=== PATIENT | male | born 1975 | race Caucasian/White ===

== ENCOUNTER 2021-03-13 11:11 | Emergency (ER) | payer OTHER ==
[~2021-03-13] VITALS: Ht 185.4 cm; Wt 91.6 kg
[~2021-03-13 11:11] MED LIST: NO MEDS
[2021-03-13 11:18] VITALS: BP 128/75
[2021-03-13] MEDS ORDERED: AZIT250T PO (12:19)
--- NOTE | 2021-03-13 12:25 | NUR ---
Patient discharged to home in stable condition. Written and verbal after care instructions given. Patient verbalizes understanding of instruction.
== END 2021-03-13 12:24 | disposition home or self-care (01) ==
LOC: ER 11:20
DX: J40 Bronchitis, not specified as acute or chronic (principal); Z98.890 Other specified postprocedural states; Z88.2 Allergy status to sulfonamides
CPT/HCPCS: 71045-TC